=== PATIENT | male | born 1995 | race Caucasian/White ===

== ENCOUNTER 2018-04-14 11:22 | Emergency (ER) | payer MEDICAID ==
--- NOTE | 2018-04-14 12:34 | EDM.PDOC ---
ED HPI GENERAL MEDICAL PROBLEM - General Chief Complaint: ENT Problem Stated Complaint: TOOTH AND MOUTH PAIN Time Seen by Provider: 04/14/18 12:29 Source of Information: Reports: Patient History Limitations: Reports: No Limitations - History of Present Illness INITIAL COMMENTS - FREE TEXT/NARRATIVE: Complains of worsening right lower dental pain x 3 days, radiating to right lower jaw and right neck. Was told had dental abscesses and needed 20 teeth extracted. Has appt with oral surgeon 05/27/18. No relief with Nambutone. Duration: Day(s): (3) Location: Reports: Face Quality: Reports: Ache Severity: Moderate Improves with: Reports: None Worsens with: Reports: None Associated Symptoms: Reports: No Other Symptoms - Related Data Home Meds: Home Meds Acetaminophen/HYDROcodone [[place] 325-5 MG] 1 - 2 tab PO Q6H PRN #15 tab [Rx] Penicillin V Potassium 500 mg PO Q6HR #40 tab 04/14/18 [Rx] Past Medical History Cardiovascular History: Reports: Hypertension Social & Family History - Tobacco Use Smoking Status *Q: Current Every Day Smoker Tobacco Use Within Last Twelve Months: Cigarettes - Alcohol Use Alcohol Use in Last Twelve Months: No - Recreational Drug Use Recreational Drug Use: No ED ROS ENT - Review of Systems Review Of Systems: See Below Constitutional: Reports: No Symptoms HEENT: Reports: Dental Pain. Denies: Throat Swelling Respiratory: Reports: No Symptoms Cardiovascular: Reports: No Symptoms Endocrine: Reports: No Symptoms GI/Abdominal: Reports: No Symptoms : Reports: No Symptoms Musculoskeletal: Reports: No Symptoms Skin: Reports: No Symptoms Neurological: Reports: No Symptoms Psychiatric: Reports: No Symptoms Hematologic/Lymphatic: Reports: No Symptoms Immunologic: Reports: No Symptoms ED EXAM, ENT - Physical Exam Exam: See Below Exam Limited By: No Limitations General Appearance: Alert, WD/WN, No Apparent Distress Ears: Normal External Exam Nose: Normal Inspection Mouth/Throat: Dental Pain, Dental Tenderness (right lower), Other (moderate dental caries throughout; no facial swelling). No: Gum Swelling, Muffled Voice , Pharyngeal Erythema, Throat Swelling, Tongue Swelling, Uvular Edema Head: Atraumatic, Normocephalic Neck: Normal Inspection, Supple Respiratory/Chest: No Respiratory Distress Extremities: Normal Inspection Neurological: Alert, Oriented, Normal Cognition, Normal Gait Psychiatric: Normal Affect, Normal Mood Skin: Warm, Dry, Intact Lymphatic: No Adenopathy Departure - Departure Time of Disposition: 12:34 Disposition: Home, Self-Care 01 Condition: Good Clinical Impression: Dental caries - Discharge Information *PRESCRIPTION DRUG MONITORING PROGRAM REVIEWED*: Yes *COPY OF PRESCRIPTION DRUG MONITORING REPORT IN PATIENT BEL: No Prescriptions: Penicillin V Potassium 500 mg PO Q6HR #40 tab Acetaminophen/HYDROcodone [[place] 325-5 MG] 1 - 2 tab PO Q6H PRN #15 tab PRN Reason: Pain Instructions: Dental Abscess Referrals: PCP,None [Primary Care Provider] - Forms: ED Department Discharge Additional Instructions: Keep appointment with oral surgery on 05/27/18
== END 2018-04-14 12:50 | disposition home or self-care (01) ==
LOC: FB.ED 11:22
DX: K02.9 Dental caries, unspecified (principal); I10 Essential (primary) hypertension; F17.210 Nicotine dependence, cigarettes, uncomplicated
CPT/HCPCS: 99282